=== PATIENT | male | born 1995 | race African-American/Black ===

== ENCOUNTER 2017-12-12 22:10 | Emergency (ER) | payer MEDICAID ==
[~2017-12-12] VITALS: Ht 180.3 cm; Wt 77.1 kg
[2017-12-12 22:17] VITALS: BP 141/74
== END 2017-12-13 01:05 | disposition home or self-care (01) ==
LOC: ER 22:10
DX: S61.213A Laceration without foreign body of left middle finger without damage to nail, initial encounter (principal); W45.8XXA Other foreign body or object entering through skin, initial encounter; Y93.89 Activity, other specified; Y92.89 Other specified places as the place of occurrence of the external cause; Y99.8 Other external cause status
CPT/HCPCS: 12001; 73130